=== PATIENT | male | born 1995 | race Hispanic/Latino ===

== ENCOUNTER 2021-03-07 15:35 | Emergency (ER) | payer SELFPAY ==
[2021-03-07] MEDS ORDERED: LIDOCAINE HCL-MPF 1% 2ML VIAL ONE (16:59)
[2021-03-07] MEDS ORDERED: CEFTRIAXONE SODIUM 1 GM ONE (16:59)
[2021-03-07] MEDS ORDERED: KETOROLAC TROMETHAMINE 30MG/ML ONE (16:59)
== END 2021-03-07 18:35 | disposition home or self-care (01) ==
LOC: EDH 15:35
DX: L03.115 Cellulitis of right lower limb (principal); Z72.0 Tobacco use
CPT/HCPCS: 93971; 96372 ×2; 99284; J0696; J1885; J3490